=== PATIENT | female | born 1980 | race Caucasian/White ===

== ENCOUNTER 2021-01-17 10:26 | Emergency (ER) | payer SELFPAY ==
[2021-01-17 10:41] VITALS: BP 114/77; PULSE 68; TEMP 97.1; BMI 27.4
[2021-01-17] MEDS ORDERED: MAG HYDROX/AL HYDROX/SIMETH -MYLANTA- ORAL SUSPENSION PO ONE (11:54)
[2021-01-17] MEDS ORDERED: MAG HYDROX/AL HYDROX/SIMETH 30 ML UNIT-DOSE CUP ONE (11:54)
== END 2021-01-17 13:22 | disposition home or self-care (01) ==
LOC: JER 10:26
DX: R05 Cough (principal)
CPT/HCPCS: 71046-TC-FY; 99284-25; C9803; U0003; U0005

== ENCOUNTER 2021-10-10 11:36 | Emergency (ER) | payer SELFPAY ==
[2021-10-10 11:48] VITALS: BP 107/70; PULSE 65; TEMP 97.7; BMI 26.1
[2021-10-11 16:11] LABS: SARS-CoV-2 NAA Detected (Not Detected)
== END 2021-10-10 13:59 | disposition home or self-care (01) ==
LOC: JER 11:36
DX: B34.9 Viral infection, unspecified (principal)
CPT/HCPCS: 87804; 99283-25; C9803; U0003; U0005

== ENCOUNTER 2023-07-26 13:09 | Emergency (ER) | payer OTHER ==
[2023-07-26 13:22] VITALS: BP 101/60; PULSE 74; RESP 18; TEMP 98.8; BMI 24.3
[2023-07-26] MEDS ORDERED: ACETAMINOPHEN 500 MG TABLET (FP) PO ONE (14:12)
[2023-07-26] MEDS ORDERED: predniSONE 20 MG TABLET (UD) PO ONE (14:22)
[2023-07-26] MEDS ORDERED: ALBUTEROL SO4 2.5/IPRATROPIUM 0.5 INH SOL 3 ML VIAL.NEB. NEB ONE ×2 (14:23→14:52)
[2023-07-26] MEDS ORDERED: AMOX TR/POT CLAV 875MG/125MG TABLETS (FP) PO ONE (14:31)
[2023-07-26] MEDS ORDERED: AMOX TR/POT CLAV 875MG/125MG TABLETS (FP) ONE (14:52)
[2023-07-26] MEDS ORDERED: predniSONE 20 MG TABLET (UD) ONE (14:53)
[2023-07-26] MEDS ORDERED: ACETAMINOPHEN 500 MG TABLET (FP) ONE (14:53)
== END 2023-07-26 15:21 | disposition home or self-care (01) ==
LOC: JERFT 13:09 → JER 13:09 → JERFT 15:21
PROC: 3E0F7GC Introduction of Other Therapeutic Substance into Respiratory Tract, Via Natural or Artificial Opening (ICD-10-PCS; principal; 2023-07-26)
DX: R05.9 Cough, unspecified (principal); R09.81 Nasal congestion; R09.89 Other specified symptoms and signs involving the circulatory and respiratory systems; R09.3 Abnormal sputum; R50.9 Fever, unspecified; R61 Generalized hyperhidrosis; J06.9 Acute upper respiratory infection, unspecified; J01.90 Acute sinusitis, unspecified; Z20.822 Contact with and (suspected) exposure to COVID-19
CPT/HCPCS: 0241U-QW; 71046-TC-FY; 99284-25